=== PATIENT | female | born 1990 | race Caucasian/White ===

== ENCOUNTER 2017-06-12 07:06 | Day surgery (SDC) | payer OTHER ==
--- NOTE | 2017-05-31 08:38 | HP ---
PREOPERATIVE HISTORY AND PHYSICAL: DATE OF ADMISSION/SURGERY: 06/12/17 DATE OF OFFICE VISIT: 05/30/17 ATTENDING SURGEON: Max Rebollar MD * (DICTATED BY RICHY ROBERTS) PROCEDURE: Left shoulder arthroscopic labral repair, subpectoral biceps tenodesis. CHIEF COMPLAINT: Left shoulder pain. HISTORY OF PRESENT ILLNESS: Gi is a 27-year-old female who presents to the clinic for followup of her left shoulder pain and instability. She has failed conservative measures and continues to have persistent pain and has therefore agreed to undergo a left shoulder arthroscopic labral repair, subpectoral biceps tenodesis with Dr. Rebollar on 06/12/17. PAST MEDICAL HISTORY: 1. Asthma. 2. Anxiety. PAST SURGICAL HISTORY: 1. Facial reconstruction. 2. Tonsillectomy. 3. [place] teeth extraction. The patient denies prior complications with anesthesia. MEDICATIONS: 1. Ibuprofen 200 mg 2 to 3 tabs every 6 hours as needed for pain. 2. Fluoxetine 10 mg daily. 3. Hydroxyzine 25 mg as needed. 4. Microgestin 1.5/30 mg/mcg 1 daily. 5. Albuterol sulfate 1 to 2 puffs every 4 hours as needed for shortness of breath. 6. Fish oil 1000 mg 1 by mouth every day. 7. Multivitamin 1 by mouth every day. 8. Glucosamine chondroitin 1500 mg 2 by mouth every day. 9. Mirena 20 mcg/24 hours. ALLERGIES: No known drug allergies. FAMILY HISTORY: Positive for heart disease and hypertension. Denies family history of DVT or PE. SOCIAL HISTORY: She lives alone. She denies tobacco use. She reports occasional alcohol consumption. She exercises regularly. She is right hand dominant. REVIEW OF SYSTEMS: A 14-point review of systems was reviewed with the patient. Positive for current complaint, otherwise negative. Denies numbness or tingling. Denies fever or chills. Denies chest pain or shortness of breath. Denies history of DVT or PE. Denies history of bleeding disorder. PHYSICAL EXAMINATION GENERAL: Well-developed, well-nourished 27-year-old female in no acute distress. Alert and oriented x3. Appropriate mood and affect. VITAL SIGNS: Height 71, weight 236, pulse 60, blood pressure 118/60, respiratory rate 17, temperature 97.2, BMI 32.9. HEENT: Normocephalic, atraumatic. PERRLA. Throat clear. NECK: Supple. PULMONARY: Lungs are clear to auscultation bilaterally. No wheezing, rhonchi, or rales. CARDIO: Regular rate and rhythm. S1, S2. No murmurs, gallops, or rubs. No edema. ABDOMEN: Positive bowel sounds, soft, nontender. MUSCULOSKELETAL: Left upper extremity: Skin is intact. No warmth or erythema. Tenderness over the bicipital groove. Forward flexion and abduction 180, external rotation 75, internal rotation to T10. +5/5 strength to rotator cuff testing. Positive apprehension, relocation test. Positive can test. +2 radial pulse. Sensation intact to light touch distally. Positive Sharkey's. DIAGNOSTIC STUDIES: MR arthrogram revealed a SLAP tear and anterior labral tear. IMPRESSION: Anterior labral tear and biceps tendinitis. PLAN/RECOMMENDATIONS: The patient is scheduled to undergo left shoulder arthroscopic labral repair and subpectoral biceps tenodesis with Dr. Rebollar on 06/12/17. She will follow up 10 to 14 days postop for followup and suture removal. Percocet was sent to the patient's pharmacy for postop pain management and Keflex for antibiotic prophylaxis. RICHY ROBERTS [id number]/[facility] #: [id number] MTDD
[~2017-06-12 07:06] MED LIST: Buffered Lidocaine 0.9% SYRIN* 5 ML/SYR SYRINGE INTRADERM ONE; Famotidine IV* 10 MG/ML 2 ML (20 mg) IV ONE
[2017-06-12] MEDS ORDERED: ceFAZolin 2 GM in 100 MLS NS (*) BAG IVPB ONE (07:24)
[2017-06-12] MEDS ORDERED: Famotidine IV* 10 MG/ML 2 ML (20 mg) ONE (07:24)
[2017-06-12] MEDS ORDERED: Buffered Lidocaine 0.9% SYRIN* 5 ML/SYR SYRINGE ONE (07:39)
[2017-06-12] MEDS ORDERED: Dexamethasone IV* 4 MG/ML 1 ML (4 MG) ONE (09:09)
[2017-06-12] MEDS ORDERED: Propofol* 10 MG/ML 20 ML BTL IV PUSH ONE (09:09)
[2017-06-12] MEDS ORDERED: Ondansetron INJ* 2 MG/ML VIAL ONE ×2 (09:09→11:58)
[2017-06-12] MEDS ORDERED: fentaNYL* 50 MCG/ML 2 ML VIAL (100 MCG VIAL) ONE ×2 (09:09→10:55)
[2017-06-12] MEDS ORDERED: Ketorolac INJ* 30 MG/ML 1 ML VIAL ONE (09:09)
[2017-06-12] MEDS ORDERED: Lidocaine 2% PF * 5 ML VIAL ONE ×2 (09:09→09:10)
[2017-06-12] MEDS ORDERED: Midazolam* 1 MG/ML 10 ML VIAL (10 MG) ONE (09:10)
[2017-06-12] MEDS ORDERED: KETAMINE HCL* 50 MG/ML 10 ML VIAL ONE (09:10)
[2017-06-12] MEDS ORDERED: ROPIVACAINE 5 MG/ML 30 ML BTL (0.5%) ONE (09:10)
[2017-06-12] MEDS ORDERED: Cisatracurium* 2 MG/ML MDV 5 ML ONE (09:10)
[2017-06-12] MEDS ORDERED: EPHEDrine (Pressors)* 50 MG/ML VIAL ONE (10:37)
[2017-06-12] MEDS ORDERED: Bupivacaine 0.25% SDV* 30 ML ONE ×2 (10:52→11:24)
[2017-06-12] MEDS ORDERED: fentaNYL* 50 MCG/ML 2 ML VIAL (100 MCG VIAL) IV PRN (11:00)
[2017-06-12] MEDS ORDERED: Naloxone* 0.4 MG/ML 1 ML VIAL IV PRN (11:00)
[2017-06-12] MEDS ORDERED: Ondansetron INJ* 2 MG/ML VIAL IV PRN (11:00)
[2017-06-12] MEDS ORDERED: oxyCODONE/Acetamin 5/325 MG* TAB PO PRN (11:00)
[2017-06-12] MEDS ORDERED: HYDROmorphone INJ* 2 MG/ML CARPUJECT SYRINGE ONE (11:58)
[2017-06-12] MEDS: HYDROmorphone INJ* 1 MG/ML CARPUJECT SYRINGE IV PRN ×2 (12:03→12:25)
[2017-06-12 12:59] VITALS: BP 121/67
--- NOTE | 2017-06-17 20:13 | OP ---
CC: PCP, [facility] * DATE OF OPERATION: 06/12/17 - LOCATED WITHIN [facility] DATE OF : 86 SURGEON: Max Rebollar MD TRAINER: RICHY Clayton ANESTHESIOLOGIST: Dr. Solis. ANESTHESIA: General, but no block. PRE-OP DIAGNOSIS: Left shoulder instability with a SLAP tear. POST-OP DIAGNOSIS: Left shoulder instability with a SLAP tear. OPERATIVE PROCEDURE: Left shoulder arthroscopy with: 1. Anterior labral repair. 2. Open subpectoral biceps tenodesis. COMPLICATIONS: None. ESTIMATED BLOOD LOSS: Minimal. IMPLANTS USED: Three 2.9 mm Bioraptors, one 2.8 mm Q-Fix. INDICATIONS: Gi Rivera is a 27-year-old female who presents with shoulder instability. She injured her shoulder a year ago. She has had multiple episodes of subluxations with evidence of SLAP tear and bicipital tendonitis. Risks and benefits of surgery were discussed at length, which included but not limited to bleeding, infection, damage to nerves, vessels, surrounding structures, wound nonhealing, persistent pain, need for further surgery, scarring, stiffness, incomplete relief of symptoms, risks of anesthesia , also risk of dislocation, failure to repair. DESCRIPTION OF PROCEDURE: The patient was greeted in the preoperative area by the attending surgeon. Correct extremity was marked, consent was confirmed. Patient was then brought back to the operating suite where she was placed in supine position on the operating table. She underwent general anesthesia, endotracheal intubation after which she was placed in the right lateral decubitus position with an axillary roll. All bony prominences were padded. She was secured with a peg board. The left arm was draped unsterile with 10 pounds of traction. The lateral eusebia was placed for easier facilitation and distraction during the labral repair. Left shoulder was prepped and draped in the usual sterile fashion beginning with chlorhexidine soap scrub and alcohol wipe and a final prep of ChloraPrep. After appropriate surgical pause indicating side, site, procedure, and administration of antibiotics, the posterolateral portal was made sharply with 11 blade. Scope was introduced through the joint. Joint was examined. There were grade 0 changes in glenohumeral joint, but the shoulder was obviously subluxed anteriorly. 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 On inspection of the capsule, there was evidence of a sublabral foramen proximally as well as superior labral tear with bicipital tendonitis. The supraspinatus and infraspinatus were intact. Subscapularis was intact. Long anterior portal was made with needle localization and an 8-mm cannula was placed anteriorly. A second cannula was placed more superiorly in the interval for facilitation of suture passage. The biceps was then taken through range of motion. Again superior labrum was torn and the biceps was then tenotomized. The attention was directed to the anterior labrum, which again had evidence of tearing as well as chronic displacement medially. The elevators were then used to carefully elevate the labrum beginning at the 3 o'clock and then extending to the 6 o'clock position. Once this was done, the red ball rasp was used to rasp the bone. Shaver was also used to rasp the bone. The double-ended rasp was used to rasp the capsule. After the bony preparation as well as capsular preparation was complete, I attempted the anchor placed again. The first anchor was placed anteriorly inferiorly at the 5:30 position. This was drilled and 2.9 Bioraptor was placed with excellent purchase. The sutures were then passed in a horizontal mattress configuration. This helped to restore the anterior inferior glenohumeral ligament as well as the inferior portion of the labrum. This was tied down using arthroscopic knot tying. A second anchor was placed at around the 4:30 position with excellent purchase. The sutures were then passed in a horizontal mattress configuration. Again, this allowed for jew of the labrum as well. Final one was placed at around the 3:30 position. This was passed with excellent purchase and tied down in simple fashion using arthroscopic knot tying. The shoulder was then examined. The posterior labrum had a mild amount of fraying, but no tearing. The inferior recess was intact. The scope was positioned in the superior portal and the shoulder was found to be resting more centrally. At this point, an awl was used to do a small microfracture for bone marrow aspirate in the bare spot to allow for further vascularization of the labral repair. At this point, the wounds were copiously irrigated with sterile saline. The attention was directed to the biceps. The bed was airplaned to the left side. The anterior aspect of the shoulder was prepped using ChloraPrep. The incision was made in line with the biceps encompassing the inferior two-thirds of the pec. The soft tissue was carefully dissected using Metzenbaum. Once the fascia was identified, the remainder of the dissection was done bluntly. The pec was translated superiorly. The bicipital groove was palpated. Biceps was brought through the wound using right angle clamp. The biceps was found to have abundant synovitis as well as hyperemia. The groove was then prepared in the usual fashion using electrocautery device, then the red ball rasp and osteotome. The 2.8-mm Q-Fix guide was then used to drill unicortically. A 2.8 Q-Fix was passed with excellent purchase. The sutures were then passed through the biceps approximately 1 cm proximal to the musculotendinous junction in Levi-Star type configuration. The excess stump was then excised. The biceps was shuttled back down to the groove and secured. The wounds were copiously irrigated with sterile saline. The portals were closed with 3-0 nylon. The anterior wound was closed in layers with 2-0 Vicryl and 3-0 Monocryl. Sterile dressings were applied. The anterior wound was injected with 20 cc of 0.25% Marcaine plain. The portals were also injected with 0.25% plain. Joint was intra- articularly injected with 0.25% plain. The sterile dressings were applied, Cryo/Cuff as well as an UltraSling. She was awoken from anesthesia and transferred to PACU in stable condition. POSTOPERATIVE PLAN: She will be nonweightbearing. She will be discharged on pain medications, antibiotics. DVT prophylaxis considered, but deferred due to no previous personal or family history. I will see the patient back in 10 to 14 days. [id number]/[facility] #: [id number] NI
== END 2017-06-12 13:15 | disposition home or self-care (01) ==
LOC: OR 07:06
PROVIDERS: ATTEND Orthopaedic Surgery
DX: M25.312 Other instability, left shoulder (principal); M75.22 Bicipital tendinitis, left shoulder; M24.212 Disorder of ligament, left shoulder; J45.909 Unspecified asthma, uncomplicated; F41.9 Anxiety disorder, unspecified
CPT/HCPCS: 81025; C1776; J1100; J1170; J1885; J2250; J2405; J2704; J2795; J3010